=== PATIENT | female | born 1980 | race Two or more races ===

== ENCOUNTER 2017-12-12 21:32 | Emergency (ER) | END 2017-12-13 01:45 | disposition home or self-care (01) ==

== ENCOUNTER 2018-05-17 09:09 | Emergency (ER) | END 2018-05-17 12:08 | disposition home or self-care (01) ==

== ENCOUNTER 2018-10-17 14:59 | Outpatient (CLI) | payer MEDICAID ==
[~2018-10-17] VITALS: Ht 157.5 cm; Wt 81.0 kg
[~2018-10-17 14:59] MED LIST: CEPH-443 PO; CLOT21CR4 VAG; FLUC150T PO; IBUP-1542 PO
[2018-10-17] MEDS ORDERED: PNV11TAB PO (17:36)
[2018-10-17 17:37] VITALS: BP 146/81; PULSE 102; RESP 18; Ht 157.5 cm; Wt 81.0 kg
--- NOTE | 2018-10-17 17:46 | HP ---
DATE OF ADMISSION: 10/17/2018 HISTORY OF PRESENT ILLNESS: Ms. Bri Coleman is a 38-year-old 4, para 3, EDC of 12/23/2018 in trauterine at 38 weeks and 3 days gestational age, was sent from clinic today for elevated blood pressures of 150/90. She currently denies any headache, nausea, vomiting, shortness of breath, visual change or epigastric pain. Her care took place at [facility]. PAST MEDICAL HISTORY: None. MEDICATIONS: vitamins. PAST SURGICAL HISTORY: None. OBSTETRIC HISTORY: x3 vaginal deliveries. GYNECOLOGIC HISTORY: 12, regular 3 to 4 days. Denies any sexually transmitted infections. Sexually active with 1 partner. SOCIAL HISTORY: Denies any smoking, drugs or alcohol. FAMILY HISTORY: None. REVIEW OF SYSTEMS: All within normal except history of present illness. PHYSICAL EXAMINATION: HEENT: Within normal limits. LUNGS: CTA bilateral. CARDIOVASCULAR: S1, S2. Regular rate, rhythm. ABDOMEN: Gravid, nontender. Negative CVA bilateral. EXTREMITIES: Negative. PELVIC: Vaginal exam deferred. Biophysical profile is 8/8 with an estimated weight consistent with gestational age. Hea daches resolved. PIH labs were negative. ASSESSMENT: 1. Intrauterine at 38 weeks and 3 days gestational age. 2. Headache, resolved. PLAN: Discharged home today with preeclamptic precautions. The patient is also to be scheduled for NST biophysical profile twice weekly secondary to advanced maternal age. Dictated By: STEPHAN TORREZ/CB Conf#: [id number] DID#: [id number]
--- NOTE | 2018-10-17 17:57 | TRIAGE ---
OB Triage Datetime Report Generated by CPN: 10/17/2018 17:56 Datetime: 10/17/2018 17:31 Stage of : OB Triage Datetime: 10/17/2018 17:10 Labor Evaluation Frequency: 0 Monitor Mode: External Pattern: Normal: <= 5 Contractions in 10 Minutes Resting Tone Langeloth: Relaxed Heart Rate FHR Baseline Rate: 145 Monitor Mode: External US Variability: Moderate 6-25 bpm Accelerations: 10X10 Decelerations: None Category: Category I Pain Assessment Pain Scale: 0 Pain Presence: None/Denies Pain Type: N/A Pain Goal: 3 Pain Relief Measures: Comfort Measures Datetime: 10/17/2018 16:17 Labor Evaluation Frequency: 0 Monitor Mode: External Pattern: Normal: <= 5 Contractions in 10 Minutes Resting Tone Langeloth: Relaxed Heart Rate FHR Baseline Rate: 155 Monitor Mode: External US Variability: Moderate 6-25 bpm Accelerations: 10X10 Decelerations: None Category: Category I Pain Assessment Pain Scale: 3 Pain Presence: Constant Pain Type: Ache Pain Location: Head Pain Goal: 3 Pain Relief Measures: Comfort Measures Datetime: 10/17/2018 15:37 Stage of : OB Triage Datetime: 10/17/2018 15:23 Stage of : OB Triage Assessment Type: Triage Maternal Assessment Level of Consciousness: Fully Conscious DTR's/Clonus: DTRs 2+; No Clonus Blurred Vision: No Respiratory Effort: Unlabored; Regular Rhythm; Equal Expansion Breath Sounds, Left: Clear and Equal Breath Sounds, Right: Clear and Equal Nausea/Vomiting: Denies RUQ Epigastric Pain: Denies Facial Edema: None Temperature Route: Axillary Fall Risk Assessment History of Falling: (0) No Secondary Diagnosis: (0) No Ambulatory Aid: (0) Bedrest/Nurse Assist IV Therapy: (0) No Gait: (0) Normal/Bedrest/Immobile Mental Status: (0) Oriented to Own Ability Fall Score: 0 Fall Risk Score Definition: No Risk: No action required Labor Evaluation Frequency: 0 Monitor Mode: External Pattern: Normal: <= 5 Contractions in 10 Minutes Resting Tone Langeloth: Relaxed Heart Rate FHR Baseline Rate: 140 Monitor Mode: External US Variability: Moderate 6-25 bpm Decelerations: None Pain Assessment Pain Scale: 7 Pain Presence: Intermittent Pain Type: Cramping; Pressure Pain Location: Perineum Pain Goal: 3 Pain Relief Measures: Comfort Measures Datetime: 10/17/2018 15:22 EGA: 30.3 Datetime: 10/17/2018 15:21 Time of Arrival: 10/17/2018 14:19 Arrived By: Ambulatory Arrived From: Dr. Del Toro Chief Complaint: REFERRED FROM OFFICE TO R/O PIH, DENIES EPIGASTRIC PAIN, BUT HAS H/A AND VISUAL DI STURBANCES. OCCAS PERINEAL PAIN, DENIES LEAKING OR BLEEDING Movement: Present Contractions: Denies/Absent Rupture of Membranes: Ruptured Vaginal Bleeding: None Vaginal Discharge: Denies Recent Sexual Intercouse: Denies Abdominal Trauma: Not Applicable Patient Complaints: Headache; Visual Disturbance; Dizziness Time Provider Notified: 10/17/2018 15:37 Provider Notified: FELIZ Initial Plan: MONITOR, PIH PANEL, BPP, EFW
== END 2018-10-17 17:42 | disposition home or self-care (01) ==
LOC: OBT 14:59 → L-D 14:59 → OBT 17:42
PROVIDERS: ATTEND Obstetrics & Gynecology
DX: O26.893 Other specified pregnancy related conditions, third trimester (principal); R51 Headache; Z3A.38 38 weeks gestation of pregnancy
CPT/HCPCS: 76815; 76818; 80053; 81001; 84560; 85025; 85384; 85610; 85730; Z7500; G0463

== ENCOUNTER 2018-12-14 10:46 | Inpatient (IN) | payer MEDICAID ==
[~2018-12-14] VITALS: Ht 157.5 cm; Wt 82.8 kg
[~2018-12-14 10:46] MED LIST changes: -CEPH-443 PO; -CLOT21CR4 VAG; -FLUC150T PO; -IBUP-1542 PO; +PNV11TAB PO
[2018-12-14 11:10] VITALS: BP 140/81; PULSE 69; RESP 18; Ht 157.5 cm; Wt 82.8 kg
--- NOTE | 2018-12-14 11:20 | TRIAGE ---
OB Triage Datetime Report Generated by CPN: 12/14/2018 11:20 Datetime: 12/14/2018 11:01 Vaginal Exam Dilatation (cms): 2.0 Effacement (%): 80 Station: -2 Exam By: Datetime: 12/14/2018 10:49 Time of Arrival: 12/14/2018 10:43 EGA: 38.3 Arrived By: Ambulatory Arrived From: Other Unit in Hospital Chief Complaint: C/O leaking @ 0400 _ bloody show Movement: Present Contractions: Irregular Rupture of Membranes: Unsure Vaginal Bleeding: Normal Show Vaginal Discharge: Denies Recent Sexual Intercouse: Denies Abdominal Trauma: Not Applicable Patient Complaints: Other Time Provider Notified: 12/14/2018 11:01 Provider Notified: Initial Plan: r/o labor Datetime: 10/17/2018 15:23 Fall Risk Assessment Fall Score: 0 Fall Risk Score Definition: No Risk: No action required Datetime: 10/17/2018 15:22 EGA: 30.1
[2018-12-14] MEDS ORDERED: METHYLERGONOVINE 0.2 MG INJ IM PRN (11:30)
[2018-12-14] MEDS ORDERED: OXYTOCIN 30 UNITS/LR 500 ML IV SCH ×3 (11:30)
[2018-12-14] MEDS ORDERED: LIDOCAINE 1% (MPF) 30 ML INJ INJ PRN (11:30)
[2018-12-14] MEDS ORDERED: OXYTOCIN 30 UNITS/LR 500 ML IV PRN (11:30)
[2018-12-14] MEDS ORDERED: BUTORPHANOL 2 MG INJ IV PRN (11:30)
[2018-12-14] MEDS ORDERED: MISOPROSTOL 200 MCG TAB PR PRN (11:30)
[2018-12-14] MEDS ORDERED: CARBOPROST 250 MCG INJ IM PRN (11:30)
[2018-12-14] MEDS: LACTATED RINGER'S 1,000 ML IV SCH ×2 (12:47→20:43)
[2018-12-15] MEDS ORDERED: LACTATED RINGER'S 1,000 ML IV PRN (01:21)
--- NOTE | 2018-12-15 02:02 | PREAC ---
Date/Time of Note Date/Time of Note DATE: 12/15/18 TIME: 02:02 Anesthesia Eval and Record Evaluation Time Pre-Procedure Interview DATE: 12/15/18 TIME: 02:02 Age 38 Sex female NPO: Other (na ) Preoperative diagnosis labor Planned procedure epidural Past Medical History Past Medical History: None Surgery & Anesthesia Issues No known issue Meds Anticoagulation: No Beta Milton within 24 hr: No Reason Beta Milton not given: Pt. not on B-Milton Reported Medications [id number] ( 19) 1 Each Tablet, 1 TAB PO DAILY, TAB 10/17/18 Current Medications Lactated Ringer's 1,000 ml @ 125 mls/hr Q8H IV Last administered on 12/14/18at 20:43; Admin Dose 125 MLS/HR; Start 12/14/18 at 11:12 Butorphanol Tartrate (Stadol) 2 mg Q2H PRN IV .PAIN SCALE 6-10 Last administered on 12/15/18at 00:28; Admin Dose 2 MG; Start 12/14/18 at 11:30 Lidocaine (Xylocaine 1% (Mpf)) 30 ml ONCE PRN INJ .EPISIOTOMY; Start 12/14/18 at 11:30 Oxytocin/Lactated Ringer's 500 ml @ 500 mls/hr ONCE POST IV ; Start 12/14/18 at 11:30 Oxytocin/Lactated Ringer's 500 ml @ 125 mls/hr POST IV ; Start 12/14/18 at 11:30 Oxytocin/Lactated Ringer's 500 ml @ 0 mls/hr ONCE PRN IV .VAGINAL BLEEDING; Start 12/14/18 at 11:30 Methylergonovine Maleate (Methergine) 0.2 mg ONCE PRN IM .VAGINAL BLEEDING; Start 12/14/18 at 11:30 Carboprost Tromethamine (Hemabate) 250 mcg ONCE PRN IM .VAGINAL BLEEDING; Start 12/14/18 at 11:30 Misoprostol (Cytotec) 1,000 mcg ONCE PRN [place] .VAGINAL BLEEDING; Start 12/14/18 at 11:30 Oxytocin/Lactated Ringer's 500 ml @ 0 mls/hr FOR AUGMENTATION IV Last administered on 12/14/18at 15:29; Admin Dose 1 MLS/HR; Start 7/3/19 at 11:30 Lactated Ringer's 1,000 ml @ 2,000 mls/hr Q30M PRN IV .ANESTHESIA Last administered on 12/15/18at 01:59; Admin Dose 2,000 MLS/HR; Start 12/15/18 at 01:21 Meds reviewed: Yes Allergies Coded Allergies: No Known Drug Allergy (Verified Allergy, Unknown, 12/12/17) Allergies Reviewed: Yes Labs/Studies Labs Reviewed: Reviewed by anesthesiologist Result Diagram: 12/14/18 1119 12/14/18 1119 Laboratory Tests 12/14/18 11:19 Blood Bank Test 12/14/18 11:19 Antibody Screen NEGATIVE Blood Type O POSITIVE Rh Immune Globulin Candidate NO test: N/A Pre-procedure Exam Last vitals Vital Signs Date Temp Pulse Resp B/P (MAP) Pulse Ox O2 O2 Flow FiO2 Time Delivery Rate 12/14/18 98.6 69 18 140/81 11:10 (100) Airway: Adequate mouth opening, Adequate thyromental dist Mallampati: Mallampati III Teeth: Normal Lung: Normal Heart: Normal ASA Physical Status ASA physical status: 2 Emergency: None Pre-operative Attestations Prior to commencing anesthesia and surgery, the patient was re-evaluated, there was verification of: *The patient's identity *The results of appropriate recent lab work and preoperative vital signs *The above evaluation not changing prior to induction *Anesthetic plan, risk benefits, alternative and complications discussed with patient/family; questions answered; patient/family understands, accepts and wishes to proceed. YOLANDA PURI DO Dec 15, 2018 02:02
[2018-12-15] MEDS ORDERED: FENTAnyl 50 MCG/ML VIAL ONE (02:04)
[2018-12-15] MEDS ORDERED: FENTAnyl 2MCG/ML-ROPIV 0.2% 100 ML ONE (02:05)
[2018-12-15] MEDS ORDERED: FENTAnyl 2MCG/ML-ROPIV 0.2% 100 ML BAG EPI SCH (02:30)
[2018-12-15] MEDS ORDERED: NALOXONE (0.4 MG/ML) INJ IV PRN (02:30)
[2018-12-15] MEDS ORDERED: OXYTOCIN 30 UNITS/LR 500 ML IV SCH (05:15)
--- NOTE | 2018-12-15 05:15 | LDN ---
Date/Time of Note Date/Time of Note DATE: 12/15/18 TIME: 05:13 Delivery Summary December 14, 2018 Weeks of Gestation 38 weeks Placenta Delivered: Spontaneously Meconium: none Episiotomy: No Indication for episiotomy N/A Perineal laceration: 2 Laceration repair: Second-degree perineal laceration and first-degree supra urethral laceration, repaired using 3-0 and 2-0 chromic. Supra urethral laceration repaired after catheterization of the urethra using red Ankit catheter. Urine was clear. Urethra appeared intact. Area was repaired using 3-0 chromic. Anesthesia type: Epidural Estimated blood loss: 300 Sponge & Needle done & correct: Yes All needle counts correct: Yes Any foreign bodies felt in the: No Infant Delivery Information Sex Sex: male Apgars 1 Minute: 9 5 Minute: 9 Suctioning Nose & mouth suctioned at makayla: Yes Delee suction performed: Yes Umbilical Cord Umbilical cord with: 3 Vessels Cord presentations: no nuchal cord Cord Blood was obtained: Yes Mother & Baby Disposition Disposition Assented delivered intact after delivery of the fetus and complete. Fundus was firm at the end of the delivery. Supra urethral laceration first-degree as well as second-degree perineal laceration noted. Repaired using 3-0 and 2-0 chromic. Urethra was catheterized using red Ankit catheter and the urine appeared to be clean and urethra was intact. Hemostasis was complete. Fundus was firm at the end. FRANK OBLAÑOS MD Dec 15, 2018 05:15
--- NOTE | 2018-12-15 05:23 | HP ---
Date/Time of Note Date/Time of Note DATE: 12/15/18 TIME: 05:21 OB - History Hx of Present Free Text/Dictation December 14, 2018 : 4 Para: 3 Care: Good Care Other Concerns: 38-year-old G4, P3 with IUP at 38 weeks and 3 days with diet and current was sent from the clinic for augmentation of labor. She was noted to be in early labor and has contractions, she denies any leaking of fluid, vaginal bleeding decreased movement. She denies any headache, blurred vision epigastric pain or right upper quadrant pain. Patient labs are all negative. She is GBS negative. Labs are otherwise unremarkable. Past Family/Social History * Past Medical, Surgical, Family and Obstetric Histories reviewed from chart. Blood Type: O+ Rubella: immune RPR/VDRL: Negative GBS Status: Negative HBsAG: Negative OB Admission Exam Vital Signs Vital Signs Vital Signs Date Temp Pulse Resp B/P (MAP) Pulse Ox O2 O2 Flow FiO2 Time Delivery Rate 12/14/18 98.6 69 18 140/81 11:10 (100) Physical Exam HEENT: WNL Lungs: Clear Abdomen: WNL Extremities: Normal Cervical Dilatation: 2cm Effacement: 75% Station: -2 Membranes: Intact Heart Rate: 130's Accelerations: Accelerations Present Decelerations: No Decelerations Varibility: Moderate Contractions on Admission: < 5 Minutes Apart Intensity: Moderate Last 72 hours Lab Results CBC & BMP 12/14/18 11:19 Liver Function Test 12/14/18 11:19 Alanine Aminotransferase (ALT/SGPT) 19 Albumin 3.4 Alkaline Phosphatase 187 H Aspartate Amino Transf (AST/SGOT) 21 Direct Bilirubin 0.00 Total Protein 6.7 OB Assessment/Plan Other Assessment: Early labor -induced hypertension, asymptomatic. No evidence of superimposed p reeclampsia. PIH labs are normal. Patient will have labor augmentation. Not a carrier of GBS. Epidural when the patient is active labor Anticipate Watch blood pressure carefully during the labor. FRANK BOLAÑOS MD Dec 15, 2018 05:23
[2018-12-15] MEDS ORDERED: METHYLERGONOVINE 0.2 MG TAB PO PRN (05:30)
[2018-12-15] MEDS ORDERED: WITCH HAZEL/GLYCERIN PAD PR PRN (05:30)
[2018-12-15] MEDS ORDERED: OXYTOCIN 30 UNITS/LR 500 ML IV PRN (05:30)
[2018-12-15] MEDS ORDERED: MISOPROSTOL 200 MCG TAB PR PRN (05:30)
[2018-12-15] MEDS ORDERED: NACL 0.9% 3 ML SYG IV SCH (05:30)
[2018-12-15] MEDS ORDERED: ONDANSETRON 4 MG INJ IV PRN (05:30)
[2018-12-15] MEDS ORDERED: morphine 2 MG INJ IV PRN (05:30)
[2018-12-15] MEDS ORDERED: LANOLIN HPA 1 PKT TOP PRN (05:30)
[2018-12-15] MEDS ORDERED: METHYLERGONOVINE 0.2 MG INJ IM PRN (05:30)
[2018-12-15] MEDS ORDERED: DIPHENHYDRAMINE 25 MG CAP PO PRN (05:30)
[2018-12-15] MEDS ORDERED: ACETAMINOPHEN 325 MG TAB PO PRN (05:30)
[2018-12-15] MEDS ORDERED: HYDROCODONE/APAP (5/325) TAB PO PRN (05:30)
[2018-12-15] MEDS ORDERED: CARBOPROST 250 MCG INJ IM PRN (05:30)
[2018-12-15] MEDS ORDERED: ZOLPIDEM 5 MG TAB PO PRN (05:30)
[2018-12-15] MEDS: IBUPROFEN 600 MG TAB PO SCH ×5 (06:00→23:52)
[2018-12-15 06:30] VITALS: BP 125/74; PULSE 70; RESP 18
--- NOTE | 2018-12-15 07:28 | PAC ---
Date/Time of Note Date/Time of Note DATE: 12/15/18 TIME: 07:28 Post-Anesthesia Notes Post-Anesthesia Note Last documented vital signs Vital Signs Date Temp Pulse Resp B/P (MAP) Pulse Ox O2 O2 Flow FiO2 Time Delivery Rate 12/15/18 97.4 70 18 125/74 Room Air 06:30 (91) Activity: WNL Respiratory function: WNL Cardiovascular function: WNL Mental status: Baseline Pain reasonably controlled: Yes Hydration appropriate: Yes Nausea/Vomiting absent: Yes YOLANDA PURI DO Dec 15, 2018 07:28
[2018-12-15 08:00] VITALS: BP 115/63; PULSE 77; RESP 18
[2018-12-15] MEDS: SENNA/DOCUSATE NA (8.6MG/50MG) TAB PO SCH ×2 (08:36→21:05)
[2018-12-15 12:00] VITALS: BP 110/55; PULSE 63; RESP 17
[2018-12-15 16:00] VITALS: BP 100/58; PULSE 63; RESP 20
[2018-12-15 19:40] VITALS: BP 125/74; PULSE 76; RESP 20
[2018-12-16] VITALS: BP 111/68; PULSE 64; RESP 18
[2018-12-16 03:58] VITALS: BP 111/62; PULSE 64; RESP 19
[2018-12-16] MEDS: IBUPROFEN 600 MG TAB PO SCH ×4 (05:27→23:46)
[2018-12-16 08:31] VITALS: BP 112/64; PULSE 75; RESP 18
[2018-12-16] MEDS: SENNA/DOCUSATE NA (8.6MG/50MG) TAB PO SCH ×2 (08:53→20:45)
[2018-12-16 16:10] VITALS: BP 119/74; PULSE 60; RESP 16
[2018-12-16 19:45] VITALS: BP 130/71; PULSE 64; RESP 19
[2018-12-17 04:00] VITALS: BP 124/65; PULSE 62; RESP 19
[2018-12-17] MEDS: IBUPROFEN 600 MG TAB PO SCH ×3 (05:41→17:46)
[2018-12-17 08:00] VITALS: BP 123/72; PULSE 76; RESP 18
[2018-12-17] MEDS ORDERED: MEASLES,MUMPS,RUBELLA VACCINE INJ SC* ONE (09:00)
[2018-12-17] MEDS ORDERED: VARICELLA VACCINE LIVE/PF 1,350 UNIT/0.5 ML ML SC* ONE (09:00)
[2018-12-17] MEDS ORDERED: DIPHTH/TET/ACEL PERTUSS (ADULT) 0.5 ML VIAL IM* ONE (09:00)
[2018-12-17] MEDS: SENNA/DOCUSATE NA (8.6MG/50MG) TAB PO SCH (09:18)
[2018-12-17 16:14] VITALS: BP 116/74; PULSE 70; RESP 18
--- NOTE | 2018-12-17 17:54 | DS ---
Date/Time of Note Date/Time of Note DATE: 12/17/18 TIME: 17:53 Obstetrical Discharge Record Final Diagnosis Final Diagnosis: Term delivered Other Final Diagnosis Subjective: Patient without complaints. Tolerating a regular diet. Breast- feeding. Lochia within normal limits. + ambulating. Objective: Vital signs within normal limits. H/H: 11.4/32.3 General: No apparent distress. Abdomen: Fundus firm two fingerbreadths below umbillicus Extremities nontender to palpation. Assessment/plan: 1. day #1. She was admitted to the hospital at 38 weeks and 3 days on 12/15/2018 in early labor. Her labor was augmented. Her hospital course was complicated by gestational hypertension. 2. Gestational hypertensionno evidence of preeclampsia. Stable within normal limits. Follow-up with blood pressure check in 1 week. 3. Anemia acute blood loss-expectant. discharge to home in stable condition Condition on Discharge Physical Assessment Patient Condition: Stable MILESTONE,LILLI DAVISON Dec 17, 2018 17:54
--- NOTE | 2018-12-18 19:45 | DELSUM ---
Delivery Summary A-C Datetime Report Generated by CPN: 12/18/2018 19:44 DELIVERY PERSONNEL Facilities Supervisor: Ricafrente, Vesna MATERNAL INFORMATION Delivery Anesthesia: Epidural Medications in Delivery: LR 500 + 30 units pitocin Delivery QBL (ml): 300 Placenta Cultured: No Maternal Complications: None LABOR SUMMARY EDC: 12/25/2018 00:00 No. Babies in Womb: 1 Attempted: No Labor Anesthesia: Epidural LABOR INFORMATION Reason for Induction: Not Applicable Onset of Labor: 12/14/2018 11:00 Complete Dilatation: 12/15/2018 03:40 Group B Beta Strep: Negative Antibiotics # of Doses: 0 Steroids Given: None Reason Steroids Not Administered: Not Applicable MEMBRANES Membranes Rupture Method: Spontaneous Rupture of Membranes: 12/15/2018 00:15 Length of Rupture (hr): 3.88 Amniotic Fluid Color: Clear Amniotic Fluid Amount: Small Amniotic Fluid Odor: None STAGES OF LABOR Stage 1 hr: 16 Stage 1 min: 40 Stage 2 hr: 0 Stage 2 min: 28 Stage 3 hr: 0 Stage 3 min: 2 Total Time in Labor hr: 17 Total Time in Labor min: 10 VAGINAL DELIVERY Episiotomy: None Laceration Extension: Second Degree Laceration Type: Perineal Other Laceration: 1st degree supraurethra laceration Laceration Repair: Yes Initial Vag Sponge Count: 20 Final Vag Sponge Count: 20 Initial Vag Sharps Count: 3 Final Vag Sharps Count: 3 Sponge Count Correct: Yes; Vaginal Sweep Performed Sharps Count Correct: Yes BABY A INFORMATION Infant Delivery Date/Time: 12/15/2018 04:08 Method of Delivery: Vaginal Born in Route : No : N/A Forceps: N/A Vacuum Extraction: N/A Shoulder Dystocia : N/A SHOULDER DYSTOCIA BABY A Delivery Date/Time: 12/15/2018 04:08 PRESENTATION/POSITION BABY A Presentation: Cephalic Cephalic Presentation: Vertex Vertex Position: Left Occipital Anterior Breech Presentation: N/A PLACENTA INFORMATION BABY A Placenta Delivery Time : 12/15/2018 04:10 Placenta Method of Delivery: Spontaneous Placenta Status: Delivered SCORES BABY A Heart Rate 1 min: >100 bpm Resp Effort 1 min: Good Cry Reflex Irritability 1 min: Cough/Sneeze/Pulls Away Muscle Tone 1 min: Active Motion Color 1 min: Body [place], Extremit Blue Resuscitation Effort 1 min: Tactile Stimulation SCORE 1 MIN: 9 Heart Rate 5 min: >100 bpm Resp Effort 5 min: Good Cry Reflex Irritability 5 min: Cough/Sneeze/Pulls Away Muscle Tone 5 min: Active Motion Color 5 min: Body [place], Extremit Blue Resuscitation Effort 5 min: Tactile Stimulation SCORE 5 MIN: 9 INFANT INFORMATION BABY A Gestational Age at Delivery: 38.4 Gestational Status: Early Term- 37- 38.6 Weeks Infant Outcome : Liveborn, with signs of life Infant Condition : Stable Sex: Male IDENTIFICATION/MEDS BABY A ID Band Number: [id number] ID Band Location: Right Leg; Left Arm Sensor Applied: Yes Sensor Number: [id number] Sensor Location : Cord Clamp Vitamin K Given : Not Given Erythromycin Given: Not Given WEIGHT/LENGTH BABY A Birthweight (gm): 3845 Weight (lb): 8 Infant Weight (oz): 8 Length (in): 20.50 Infant Length (cm): 52.07 CORD INFORMATION BABY A No. Cord Vessels: 3 Nuchal Cord : Around Neck x1, Loose Nuchal Cord- Other: 0 True Knot: 0 Cord Blood Taken: Yes Banking/Donate Info: No Infant Suction: Mouth; Nose ASSESSMENT BABY A Complications: None Physical Findings at Delivery: Within Normal Limits Respirations: Appears Normal Reading Teacher/ALS Called : No Care By: Rainer Domingo RN Transferred To: Remains with Mother
--- NOTE | 2018-12-19 12:03 | NSTRPT ---
NST Information Datetime Report Generated by CPN: 12/19/2018 12:03 Datetime: 12/14/2018 09:18 NST Information EGA: 38.3 Test Number: 5 Time on Monitor: 12/14/2018 09:42 Time off Monitor: 12/14/2018 10:05 NST Duration (Min): 23 Reason for NST: Other Reason for NST Other: Advanced Maternal Age Test and Monitor Explained: Monitor Explained; Test Explained; Verbalized Understanding; Breastfeed ing Info Given Pulse: 75 Resp: 20 SBP: 123 DBP: 74 Test Evaluation NST Interventions: None Patient States Movement: Present Contraction Frequency: X1 FHR Baseline : 125 Variability: Moderate 6-25bpm Accelerations: 15X15 Decelerations: None FHR Category: Category I NST Results: Reactive Comments: To US CHRIS-12.4 CM, CEPHALIC. Electronically Signed By E-Signature: with User ID: [id number] Datetime: 12/12/2018 11:21 NST Information EGA: 38.1 NST Duration (Min): 26 Datetime: 12/08/2018 10:42 NST Information EGA: 37.4 NST Duration (Min): 20 Datetime: 12/05/2018 10:43 NST Information EGA: 37.1 NST Duration (Min): 29 Datetime: 12/01/2018 10:52 NST Information EGA: 36.4 NST Duration (Min): 21
== END 2018-12-17 19:30 | disposition home or self-care (01) | DRG 807 ==
LOC: OBT 10:46 → L-D 10:47 → OBT 11:10 → L-D 11:19 → PP1 12-15 06:15
PROVIDERS: ADMIT Obstetrics & Gynecology; ATTEND Obstetrics & Gynecology
PROC: 10E0XZZ Delivery of Products of Conception, External Approach (ICD-10-PCS; principal; 2018-12-15)
PROC: 3E033VJ Introduction of Other Hormone into Peripheral Vein, Percutaneous Approach (ICD-10-PCS; 2018-12-15)
PROC: 0HQ9XZZ Repair Perineum Skin, External Approach (ICD-10-PCS; 2018-12-15)
DX: O13.3 Gestational [pregnancy-induced] hypertension without significant proteinuria, third trimester (principal); Z37.0 Single live birth; Z3A.49 Greater than 42 weeks gestation of pregnancy; O70.0 First degree perineal laceration during delivery; Z3A.38 38 weeks gestation of pregnancy
CPT/HCPCS: 62322; 76815; 76818; 80053; 81001; 81003; 84560; 85025; 85384; 85610; 85730; 86592; 86850; 86900; 86901; 90716; G0463; J0595; J2590; J3010; J7120